=== PATIENT | male | born 1975 | race Caucasian/White ===

== ENCOUNTER 2017-02-09 21:30 | Inpatient (IN) | payer MEDICAID, OTHER ==
[~2017-02-09] VITALS: Ht 175.3 cm; Wt 106.1 kg
[2017-02-09 21:59] LABS: BASOPHILS # (AUTO) 0.02 K/uL (0.00-0.20); BASOPHILS % (AUTO) 0.2 % (0.0-2.0); EOSINOPHILS # (AUTO) 0.08 K/uL (0.00-0.70); EOSINOPHILS % (AUTO) 0.84 % (1.0-6.0); HEMOGLOBIN 15.6 g/dL (13.5-17.5); LYMPHOCYTES % (AUTO) 20.7 % (22.0-44.0); MEAN CORPUSCULAR HEMOGLOBIN 30.6 pg (26.0-34.0); MEAN CORPUSCULAR HGB CONC 33.9 G/dL (31.0-37.0); MEAN CORPUSCULAR VOLUME 90 fL (80-100); MONOCYTES # (AUTO) 0.6 K/uL (0.1-1.0); MONOCYTES % (AUTO) 6.6 % (2.0-9.0); NEUTROPHILS # (AUTO) 6.8 K/uL (1.8-7.7); NEUTROPHILS % (AUTO) 71.7 % (40.0-70.0); PLATELET COUNT (AUTO) 365 K/uL (150-450); RED CELL DISTRIBUTION WIDTH 13.1 % (11.5-14.5)
[2017-02-09] MEDS ORDERED: QUET200T PO (21:59)
[2017-02-09] MEDS ORDERED: BUPR100 PO (21:59)
[2017-02-09] MEDS ORDERED: HYDR-4031 PO (21:59)
[2017-02-09] MEDS ORDERED: GABA-529 PO (21:59)
[2017-02-09] MEDS ORDERED: TRAZ150 PO (21:59)
[2017-02-09 22:12] LABS: ANION GAP 10 mmol/L (8-16); CALCIUM, TOTAL 8.8 mg/dL (8.8-10.5); CARBON DIOXIDE 26 mmol/L (22-29); CHLORIDE 101 mmol/L (98-107); GLOMERULAR FILTR. RATE CALC > 60 mL/min (>60); GLUCOSE,RANDOM 126 mg/dL (70-110); POTASSIUM 3.8 mmol/L (3.5-5.1); SODIUM SERUM 137 mmol/L (136-145); UREA NITROGEN, BLOOD 8 mg/dL (7-18)
[2017-02-09 22:17] LABS: ALANINE AMINOTRANSFERASE 23 U/L (12-78); ALBUMIN 3.6 g/dL (3.4-5.0); ALKALINE PHOSPHATASE 94 U/L (46-116); ASPARTATE AMINOTRANSFERASE 9 U/L (15-37); BILIRUBIN,TOTAL 0.2 mg/dL (0.1-1.0); TOTAL PROTEIN, SERUM 7.3 g/dL (6.4-8.2)
[2017-02-09 22:54] LABS: AMPHET/METH SCREEN,URINE NEGATIVE (NEGATIVE); BARBITURATE SCREEN, URINE NEGATIVE (NEGATIVE); BENZODIAZEPINES SCREEN,URINE NEGATIVE (NEGATIVE); CANNABINOID SCREEN,URINE NEGATIVE (NEGATIVE); COCAINE SCREEN,URINE NEGATIVE (NEGATIVE); METHADONE SCREEN, URINE NEGATIVE (NEGATIVE); OPIATE SCREEN,URINE NEGATIVE (NEGATIVE); PHENCYCLIDINE SCREEN,URINE NEGATIVE (NEGATIVE)
[2017-02-09] MEDS ORDERED: LORazepam 2 MG TABLET PO ONE (23:45)
[2017-02-09] MEDS ORDERED: DiphenhydrAMINE HCL 25 MG CAPSULE PO ONE (23:45)
[2017-02-09] MEDS ORDERED: HALOPERIDOL 5 MG TABLET PO ONE (23:45)
[2017-02-10] MEDS ORDERED: HALOPERIDOL 5 MG TABLET PO PRN
[2017-02-10] MEDS: ZOLPIDEM TARTRATE 10 MG TABLET PO PRN (01:11)
[2017-02-10 01:32] VITALS: BP 149/93
[2017-02-10] MEDS ORDERED: INFLUENZA VIRUS VACCINE QVS 2017-18 (3YR+)/PF 60 MCG/0.5 ML SYRINGE IM ONE (03:30)
[2017-02-10 08:42] VITALS: BP 122/87
[2017-02-10] MEDS: LORazepam 2 MG TABLET PO PRN (13:24)
[2017-02-10 16:30] VITALS: BP 125/85
[2017-02-10] MEDS: BuPROPion HCL 100 MG SR TABLET PO SCH (17:20)
[2017-02-10] MEDS ORDERED: IBUPROFEN 400 MG TABLET PO PRN (20:00)
[2017-02-10] MEDS: TraZODone HCL 150 MG TABLET PO SCH (20:54)
[2017-02-10] MEDS: QUEtiapine FUMARATE 200 MG TABLET PO SCH (20:54)
[2017-02-11 07:40] LABS: CHOL/HDL RATIO 4.6 (4.2-7.3); THYROID STIMULATING HORMONE 0.96 uIU/mL (0.36-3.74)
[2017-02-11] MEDS: ACETAMINOPHEN 325 MG TABLET PO PRN (07:54)
[2017-02-11 07:55] VITALS: BP 132/90
[2017-02-11] MEDS: NICOTINE 21 MG/24 HOUR PATCH TD SCH (07:57)
[2017-02-11] MEDS: BuPROPion HCL 100 MG SR TABLET PO SCH ×2 (08:56→17:07)
[2017-02-11 10:21] VITALS: BP 132/90
[2017-02-11] MEDS: LORazepam 2 MG TABLET PO PRN ×2 (12:33→22:42)
[2017-02-11 17:32] VITALS: BP 120/77
[2017-02-11] MEDS: TraZODone HCL 150 MG TABLET PO SCH (20:23)
[2017-02-11] MEDS: QUEtiapine FUMARATE 200 MG TABLET PO SCH (20:24)
[2017-02-11] MEDS: ZOLPIDEM TARTRATE 10 MG TABLET PO PRN (22:42)
[2017-02-12 08:00] VITALS: BP 132/71
[2017-02-12] MEDS: ACETAMINOPHEN 325 MG TABLET PO PRN (08:15)
[2017-02-12] MEDS: BuPROPion HCL 100 MG SR TABLET PO SCH (08:15)
[2017-02-12] MEDS: NICOTINE 21 MG/24 HOUR PATCH TD SCH (08:17)
[2017-02-12] MEDS ORDERED: QUET200T29 PO (08:19)
[2017-02-12] MEDS ORDERED: BUPR100SR PO ×2 (08:19→09:24)
[2017-02-12] MEDS ORDERED: TRAZ150 PO (08:19)
[2017-02-12 09:00] VITALS: BP 120/68
[2017-02-12] MEDS ORDERED: QUET200T PO (09:32)
[2017-02-12 10:12] VITALS: BP 128/68
== END 2017-02-12 10:45 | disposition home or self-care (01) | DRG 750 ==
LOC: EMS 21:31 → 3EI 02-10 00:47
PROVIDERS: ADMIT Psychiatry & Neurology Child & Adolescent Psychiatry; ATTEND Psychiatry & Neurology Child & Adolescent Psychiatry
DX: F25.1 Schizoaffective disorder, depressive type (principal); R45.851 Suicidal ideations; F29 Unspecified psychosis not due to a substance or known physiological condition; I10 Essential (primary) hypertension; F10.20 Alcohol dependence, uncomplicated; F17.210 Nicotine dependence, cigarettes, uncomplicated; F19.10 Other psychoactive substance abuse, uncomplicated; Z79.899 Other long term (current) drug therapy
CPT/HCPCS: 84443; 99285; G0480